=== PATIENT | female | born 1945 | race Caucasian/White ===

== ENCOUNTER 2017-01-13 08:00 | Inpatient (IN) | payer MEDICARE, BC ==
[~2017-01-13] VITALS: Ht 157.5 cm; Wt 104.1 kg
--- NOTE | ~2017-01-13 | OR ---
PATIENT'S NAME: VARINDER VÁSQUEZ [facility] AGE: 71 Y [address] ROOM: [place] [address] LOCATION: [facility] ADMIT DATE: 01/27/2017 OR/Procedure Report DISCHARGE DATE: FAMILY PHYSICIAN: Pauline Norman MD ATTENDING PHYSICIAN: DANELLE FONTANEZ SURGEON: Danelle Fontanez MD TAX ECONOMIST: 1. BREANN Choe. 2. Brayan Ryan CST/JOYCE. DATE OF PROCEDURE: 01/27/2017 PRE-OP DIAGNOSIS: Degenerative joint disease, left knee. POST-OP DIAGNOSIS: Degenerative joint disease, left knee. OPERATION: Left total knee arthroplasty with computer navigation. ANESTHESIA: General endotracheal anesthesia plus adductor canal block plus periarticular local anesthesia (ropivacaine with epinephrine and Toradol). ESTIMATED BLOOD LOSS: Less than 10 mL. DRAIN: None. SPECIMEN: None. COMPLICATIONS: None. IMPLANT SYSTEM: [place] Triathlon: 1. Size 3 left posterior stabilized femoral component. 2. Size 3 [place] modular tibial baseplate. 3. A 9 mm posterior stabilized size 3 X3 tibial polyethylene insert. 4. A 29 mm asymmetric X3 patellar component. INDICATIONS FOR SURGERY: Varinder Vásquez is a 71-year-old female who presents with advanced left knee degenerative joint disease and associated severely compromised activities of daily living. The patient has decided to proceed with knee replacement after having been thoroughly counseled regarding the associated risks, benefits, and limitations. We have specifically reviewed the risks and implications of infection, deep venous thrombosis, pulmonary embolism, mortality, neurovascular complications, blood transfusion (and associated potential for disease transmission or transfusion reaction), stiffness, instability, mechanical deterioration of the components (due to wear and or loosening), and the potential need for revision. We have also emphasized the importance of active involvement and compliance with post- operative physical therapy as a means of optimizing range of motion and PATIENT'S NAME: VARINDER VÁSQUEZ [facility] AGE: 71 Y [address] ROOM: [place] [address] LOCATION: [facility] ADMIT DATE: 01/27/2017 OR/Procedure Report DISCHARGE DATE: FAMILY PHYSICIAN: Pauline Norman MD ATTENDING PHYSICIAN: DANELLE FONTANEZ functional recovery. Informed consent has been granted. DESCRIPTION OF PROCEDURE: The patient was positioned supine after administration of anesthesia and prophylactic antibiotics. A well-padded pneumatic tourniquet was placed around the left proximal thigh, and the left lower extremity was prepped and draped with vigilant sterile technique. The patient's name as well as the intended operative side and procedure were confirmed with a verbal time-out involving myself, the circulating nurse, the scrub nurse, and the anesthesiologist. Examination under anesthesia demonstrated no active skin lesions or masses. There was a visible flexion contracture. There was moderate effusion. There was no erythema. There was no abnormal warmth. Range of motion under anesthesia was from a 10-degree flexion contracture to 115 degrees of flexion. There was no ligamentous insufficiency. The left lower extremity was elevated and exsanguinated with an Esmarch wrap, and the pneumatic tourniquet was inflated to 300mmHg. The knee was approached through a longitudinal midline incision. A medial parapatellar arthrotomy was performed and the patella was everted. Examination of the joint space demonstrated a moderate amount of benign-appearing translucent synovial fluid. There were no loose bodies. There was no synovitis. The cruciate ligaments were intact. There were large osteophytes at the medial and lateral margins of the intercondylar notch as well as large osteophytes at the medial and lateral femoral trochlea as well as the medial and posterior aspects of the medial femoral condyle and the posterior aspect of the medial tibial plateau. There was a small osteophyte at the anterior aspect of the medial tibial plateau. There was full-thickness loss of articular cartilage involving 70% of the medial femoral condyle as well as a 1 cm diameter region at the lateral femoral condyle as well as the anteromedial 2/3rd of the medial tibial plateau. There was mild chondrocalcinosis and moderate grade 2 chondromalacia extending across the equator of the patella. There was mild chondrocalcinosis and grade 2 chondromalacia at the lateral tibial plateau. There was a moderate sized osteophyte at the lateral tibial plateau. The medial meniscus was truncated. There was mild inner perimeter tearing and mild chondrocalcinosis at the lateral meniscus. Remnants of the menisci and cruciate ligaments were excised. The [employer] navigation femoral tracker was pinned in place at the distal aspect of the femoral trochlea. Absence of motion between the femur and the tracking device was confirmed manually and visually. Femoral osseous landmarks were obtained in order to calibrate the computer navigation system. Landmarks included the center of rotation of the ipsilateral hip, the center-point of the distal femur, the femoral AP axis, 57 points on the medial femoral condyle PATIENT'S NAME: VARINDER VÁSQUEZ [facility] AGE: 71 Y [address] ROOM: [address] [address] LOCATION: [facility] ADMIT DATE: 01/27/2017 OR/Procedure Report DISCHARGE DATE: FAMILY PHYSICIAN: Pauline Norman MD ATTENDING PHYSICIAN: DANELLE FONTANEZ articular surface, and 57 points on the lateral femoral condyle articular surface. The [employer]reed computer navigation system was subsequently utilized to position the distal femoral resection block such that the distal femoral resection was performed perfectly perpendicular to the femoral mechanical axis. The distal femoral resection was performed with a [employer] oscillating saw. The [employer]reed computer navigation tibial tracker was pinned in place at the anterior aspect of the tibial plateau. Absence of motion between the tibia and the tracking device was confirmed manually and visually. Tibial osseous landmarks were obtained in order to calibrate the computer navigation system. Landmarks included the center-point of the tibial plateau, the AP tibial axis, 57 points on the medial tibial plateau articular surface, 57 points on the lateral tibial plateau articular surface, the medial malleolus, and the lateral malleolus. The Degreed computer navigation system was subsequently utilized to position the proximal tibial resection block such that the proximal tibial resection was performed perfectly perpendicular to the tibial mechanical axis. The proximal tibial resection was performed with a [employer] Precision oscillating saw. Perpendicularity of the tibial resection with respect to the tibial shaft axis was reconfirmed by inserting a spacer- block attached to an extramedullary guide rodney. External rotation of the anterior and posterior femoral resections was set parallel to the epicondylar axis and carefully adjusted in order to create a rectangular flexion gap. The box resection was performed with a reciprocating saw. Anterior and posterior chamfer resections were performed with the oscillating saw. Posterior condyle osteophytes were excised with an osteotome. All other osteophytes were excised with a rongeur. Resection of all remnants of the menisci was reconfirmed. Flexion and extension gaps were confirmed to be symmetric and well balanced with a spacer-block technique. The patella resection was performed with an oscillating saw such that the composite thickness of the reconstructed patella was equivalent to the thickness of the mentasta patella. Patella tracking was optimal, and there was no need for a lateral retinacular release. All trial components were removed and all prepared osseous surfaces were thoroughly irrigated with pulsatile saline lavage and dried prior to cementing all three components in a single stage using [place] Simplex cement containing pre-mixed tobramycin. All extruded excess cement was removed. The entire joint space was thoroughly inspected and thoroughly irrigated with bacteriostatic pulsatile saline lavage to assure that there was no residual debris of any sort. Final range of motion was from full extension (with no passive hyperextension) PATIENT'S NAME: VARINDER VÁSQUEZ [facility] AGE: 71 Y [address] ROOM: [address] [address] LOCATION: [facility] ADMIT DATE: 01/27/2017 OR/Procedure Report DISCHARGE DATE: FAMILY PHYSICIAN: Pauline Norman MD ATTENDING PHYSICIAN: DANELLE FONTANEZ to 125 degrees of flexion. Patella tracking was reconfirmed to be optimal. There was excellent anteroposterior stability at 90 degrees of flexion. There was less than 1 mm of medial lift-off to valgus stress in full extension. There was less than 1 mm of lateral lift-off to varus stress in full extension. The arthrotomy was closed with multiple simple and [id number] interrupted #1 Vicryl. Subcutaneous tissues were thoroughly re-irrigated with bacteriostatic pulsatile saline lavage. Subcutaneous tissues were re- approximated with simple buried interrupted #0 Vicryl sutures. The skin was closed with simple buried interrupted 2-0 Vicryl sutures followed by surgical thais. The dressing consisted of Xeroform gauze, 4x4 gauze, ABD pads and two 6-inch Florentin Wraps. There were no intra-operative complications. It should be noted that the physician's clinical medical assistant played an active, integral role throughout this entire operation. By providing expert retraction, they greatly facilitated and expedited safe and effective exposure of the distal femur, proximal tibia and patella for preparation and implantation of the components. They were also actively involved in the patient's positioning, prepping and draping, as well as wound closure. MD FAUSTINA BRADEN/tom /[id number] d: 01/27/17 1450 t: 01/31/17 2220, OPERATIVE SUMMARY
[2017-01-13] MEDS ORDERED: HYDROXYCHLOROQ200 MG PO (10:47)
[2017-01-13] MEDS ORDERED: PROTONIX40 MG PO (10:48)
[2017-01-13] MEDS ORDERED: TRIBENZOR 40-11 EACH PO (10:48)
[2017-01-13] MEDS ORDERED: ONE DAILY WOME1 EAC2 PO (10:49)
[2017-01-13] MEDS ORDERED: POTASSIUM CHLO20 ME1 PO (10:50)
[2017-01-13] MEDS ORDERED: ASPIRIN325 MG PO (10:50)
[2017-01-13] MEDS ORDERED: COREG25 MG PO (10:50)
[2017-01-13] MEDS ORDERED: CALCIUM + VITA1 EACH PO (10:50)
[2017-01-13] MEDS ORDERED: HYDROCODON-ACE1 EAC6 PO (10:51)
[2017-01-13] MEDS ORDERED: ADVIL200 MG PO (10:51)
[2017-01-13] MEDS ORDERED: AMBIEN5 MG PO (10:52)
[2017-01-13] MEDS ORDERED: METHOTREXATE (2.5 MG PO (10:52)
[2017-01-13] MEDS ORDERED: FLEXERIL10 MG PO (10:52)
[2017-01-13] MEDS ORDERED: FOLIC ACID1 MG PO (10:53)
[2017-01-13] MEDS ORDERED: ZOMETA4 MG/5 ML IV (10:54)
[2017-01-13] MEDS ORDERED: CHANTIX1 MG PO (10:55)
--- NOTE | 2017-01-27 13:38 | NUR ---
PATIENT STATES THAT SHE HAD NO LYMPH NODE INVOLVEMENT ON THE RIGHT SIDE WITH HER BILAT MASECTOMY.
--- NOTE | 2017-01-27 17:00 | NUR ---
SPOKE TO PATIENT AND HER SPOUSE AT THE BEDSIDE. INTRODUCED CM AND OUR ROLE. PATIENT LIVES IN OWN HOME WITH SPOUSE AND IS PLANNING ON RETURNING THERE ONCE SHE IS READY FOR DISCHARG ALONG WITH HELP FROM DAUGHTER. PATIENT HAS ALL HER DME.SHE DOES NOT ANTICIPATE ANY DISCHRAGE NEEDS AT THIS TIME. WILL CONT TO FOLLOW NEEDED.
--- NOTE | 2017-01-27 18:12 | NUR ---
ARRIVED FROM PACU AT 1330 3RD HOURLY VITAL SIGN WILL BE AT 1915. VOIDING WITHOUT DIFFICULTY. BILAT MASECTOMY BUT CAN HAVE IV ON THE RIGHT ARM BECAUSE NO LYMPH NODE INVOLVEMENT. MIDLINE CATH IN PLACE. HAD 1 NORCO AT 1800. DRESSING C/D/I. CSM WNL. TAKING PO WITHOUT DIFFICULTY. DENIES NEEDS.
--- NOTE | 2017-01-28 03:34 | NUR ---
Significant Event: Alert/oriented x3. 1 [place] at 2159, 0049, 0328. 1 assist ambulation. Up in recliner at 0330. Voids well per bathroom. EZ wrap to left knee. Bilateral foot pumps. Legs elevated on pillow. Carlos hose removed at HS. Saline lock upper right arm. Take BP lower right arm. VSS, hypertensive, last 2 SBPs in 150s and 140s, higher at beginning of shift. CSM WNL. Room air.Next Ancef due at 1000. Follow up:
--- NOTE | 2017-01-28 19:23 | NUR ---
Significant Event: Ambulates with SBA and walker. Dressing C/D/I. Ez wrap ice at all times. Voids without difficulty. Passing gas, no BM. [place] last at 180. CSM WNL. May take BP on lower right arm as no lymphnodes removed with mastectomy. Plans to dismiss home tomorrow. Follow up:
--- NOTE | 2017-01-29 03:23 | NUR ---
Significant Event: A/O X 3. HAD NORCO, TORADOL 15MG IV, VALIUM FOR PAIN. PAIN 7, LATER A 2. MORE COMFORTABLE. AMBULATED TO BR WITH ONE ASSIST, GAITBELT AND WALKER, GOOD TOLERANCE. SAT UP IN RECLINER CHAIR MOST OF NOC, MORE COMFORTABLE. EZ-WRAP TO LEFT KNEE. ELEVATION WHILE UP IN RECLINER. TAKES FLUIDS, NO NAUSEA. HAD OCCASIONAL NUMBNESS AT TIMES LEFT THIGH, KNEE AREA. DENIES NUMB-TINGLING TO FEET-TOES. ÁSNCHEZ HOSE OFF HS BILATERAL FOOT PUMPS TO FEET. INCENTIVE SPIROMETER USAGE 1500. Follow up:
[2017-01-29] MEDS ORDERED: COLACE100 MG PO (14:30)
[2017-01-29] MEDS ORDERED: HUMIBID LA (MU600 MG PO (14:32)
[2017-01-29] MEDS ORDERED: MIRALAX17 GM PO (14:33)
--- NOTE | 2017-01-29 15:45 | NUR ---
D: PATIENT ALERT AND ORIENTED X3. MEPILEX DRESSING TO L) KNEE C/D/I. CSM ASSESSMENTS WNL TO L) LOWER EXTREMITY. PAIN WELL CONTROLLED WITH NORCO 1 TAB GIVEN LAST AT 1453. AMBULATES AND UP TO CHAIR WITH SBA, USE OF WALKER/GAIT BELT, TOLERATES WELL, GAIT STEADY. BILATERAL KNEE HIGH TEDS AND FOOT PUMPS ON. EZ WRAP TO L) KNEE. DISCHARGE INSTRUCTIONS REVIEWED WITH PATIENT AND , VERBALIZES UNDERSTANDING. PATIENT DISMISSED TO HOME, ACCOMPANIED BY . ASSISTED TO VEHICLE VIA W/C AND TA ASSISTANCE. DISMISSED WITH PERSONAL BELONGINGS, AND EZ WRAP AND ICE BAGS X4.
== END 2017-01-29 15:45 | disposition disaster alternative care site (69) | DRG 470 ==
LOC: G3N 01-27 07:52
PROVIDERS: ADMIT Orthopaedic Surgery
PROC: 0SRD0J9 Replacement of Left Knee Joint with Synthetic Substitute, Cemented, Open Approach (ICD-10-PCS; principal; 2017-01-27)
PROC: XR2H021 Monitoring of Left Knee Joint using Intraoperative Knee Replacement Sensor, Open Approach, New Technology Group 1 (ICD-10-PCS; principal; 2017-01-27)
DX: M17.12 Unilateral primary osteoarthritis, left knee (principal); Z68.41 Body mass index [BMI] 40.0-44.9, adult; I10 Essential (primary) hypertension; E66.9 Obesity, unspecified; Z87.891 Personal history of nicotine dependence; Z85.3 Personal history of malignant neoplasm of breast
CPT/HCPCS: C1713; C1751; C1776; J0690; J1100; J1885; J2250; J2405; J2795; J7120

== ENCOUNTER → 2017-01-16 | Outpatient (CLI) | payer MEDICARE, BC ==
[~2017-01-16] MED LIST: ADVIL200 MG PO; AMBIEN5 MG PO; ASPIRIN325 MG PO; CALCIUM + VITA1 EACH PO; CHANTIX1 MG PO; COLACE100 MG PO; COREG25 MG PO; FLEXERIL10 MG PO; FOLIC ACID1 MG PO; HUMIBID LA (MU600 MG PO; HYDROCODON-ACE1 EAC6 PO; HYDROXYCHLOROQ200 MG PO; METHOTREXATE (2.5 MG PO; MIRALAX17 GM PO; ONE DAILY WOME1 EAC2 PO; POTASSIUM CHLO20 ME1 PO; PROTONIX40 MG PO; TRIBENZOR 40-11 EACH PO; ZOMETA4 MG/5 ML IV
== END ==
LOC: GNJRC 10:21
DX: Z01.818 Encounter for other preprocedural examination (principal); M17.12 Unilateral primary osteoarthritis, left knee; Z79.899 Other long term (current) drug therapy